=== PATIENT | male | born 1965 | race Caucasian/White ===

== ENCOUNTER → 2021-10-31 10:40 | Outpatient (CLI) | payer OTHER, SELFPAY ==
--- NOTE | ~2021-10-31 | MR_ITS ---
EXAMINATION: MR shoulder LT wo con DATE: 10/31/2021 11:31 INDICATION: Left shoulder pain TECHNIQUE: Magnetic resonance imaging (MRI) of the left shoulder was performed without intravenous co ntrast. Sequences included axial PD-weighted FS FSE, coronal oblique PD-weighted FS FSE, coronal obli que T2-weighted FS FSE, sagittal PD-weighted FS FSE, and sagittal T1-weighted SE. COMPARISON: None. FINDINGS: Coracoacromial arch: The acromion undersurface is curved in morphology (type II). Small anterior subacromial spur at the f emoral attachment of the normal coracoacromial ligament. Moderate acromioclavicular osteoarthritis wi th small inferiorly directed osteophyte at the lateral head of the clavicle. Rotator cuff: Mild supraspinatus and moderate to severe infraspinatus tendinopathy. There is complete full-thicknes s tear along the greater tuberosity footplate of the supraspinatus tendon and portion of the conjoine d supraspinatus and infraspinatus tendons which measures 2 cm AP along the greater tuberosity and wit h approximate 4 cm medial retraction of the retracted supraspinatus tendon tear margin which is locat ed between the level of the acromioclavicular joint and the rim of the glenoid. The tear continues po steriorly as articular sided tear of the anterior two thirds of the infraspinatus tendon where it inv olves between one half and two thirds of the tendon thickness. The posterior most infraspinatus tendo n remains intact. The teres minor tendon is normal. Moderate subscapularis tendinopathy with tiny int rasubstance tear at the central aspect of the lesser tuberosity footplate. There is moderate fatty at rophy of the infraspinatus muscle belly and mild atrophy of the supraspinatus muscle belly. Biceps tendon, glenoid labrum and glenohumeral cartilage: Moderate tendinopathy of the intra-articular long head biceps tendon without definitive tear. Mild pa rtial-thickness cartilage loss with smooth chondral surface at the cephalad half of the glenoid. Ther e is degeneration of the posterosuperior and diminutive posterior glenoid labrum with small marginal osteophytes replacing portions of the posterior labrum. There is more severe cartilage loss along the posterior inferior rim of the glenoid. There is a tear at the inferior glenoid labrum which appears contiguous with and intrasubstance delaminating tear of the articular cartilage along the inferior th ird of the glenoid extending up to 8 mm cephalad to the inferior rim of the glenoid. Mild partial-thi ckness cartilage loss along the inferomedial and superolateral aspect of the humeral head without deg enerative subchondral changes. Fluid: Small glenohumeral joint effusion which extends to the full-thickness rotator cuff tear to communicat e with small amount of fluid in the subacromial/subdeltoid and subcoracoid bursae. No loose osteochon dral bodies. Bones: Normal marrow signal with no edema, fracture or pathologic marrow replacing process. IMPRESSION: 1. Complete full-thickness tear and significant medial retraction of the supraspinatus tendon and mod erate to severe partial thickness articular sided tear of the majority the more posterior infraspinat us tendon. 2. Mild glenohumeral osteoarthritis with extensive labral degeneration and discrete labral tear and a ssociated prominent chondral flap tear at the inferior glenoid. 3. Moderate subscapularis tendinopathy with tiny intrasubstance tear at the lesser tuberosity footpla te. Reviewed, dictated and finalized at location A. IMPRESSION: 1. Complete full-thickness tear and significant medial retraction of the supras pinatus tendon and moderate to severe partial thickness articular sided tear of the majority the more posterior infraspinatus tendon. 2.
== END ==
PROVIDERS: PCP Physician Assistant Medical; Visit Provider Physician Assistant Medical
DX: M19.012 Primary osteoarthritis, left shoulder (principal)
CPT/HCPCS: 73221

== ENCOUNTER 2022-11-03 01:13 | Day surgery (SDC) | payer OTHER, SELFPAY ==
[2022-10-20 14:41] VITALS: BMI 40.4
--- NOTE | 2022-10-31 14:48 | PM.HPGS ---
History of Present Illness History of Present Illness Consent: Risks, benefits, and alternatives have been discussed and questions answered. Patient agrees to proceed with procedure. Chief complaint: other fecal abnormalities Narrative: Dre Salazar is a 57 year old male Referred for colon cancer screening. A Cologuard test was positive. Review of Systems Review of Systems: All systems reviewed & are unremarkable except as noted in HPI and below PMFSH Past Medical History Medical History Anxiety BPH (benign prostatic hyperplasia) HTN (hypertension) Surgical History Surgical History History of open reduction and internal fixation (ORIF) procedure History of repair of left rotator cuff Social History Social History Smoking status: Never smoker Alcohol intake: current Alcohol use details: Socially Substance use: never Substance use type: does not use Lack of Transportation: No Lack of Food: Never True Current Housing: I Have Housing Concerned About Future Housing: No Difficulty Paying Gas/Electric Bills: No Difficulty Paying for Meds: No Currently Unemployed: No Education: Don't Know Difficulty w/ Childcare or Family Care: No Living arrangements: with family Occupation/Education: retired Gender identity (if verbalized by the patient): Male Sexual Orientation (if Verbalized by the Patient): Straight or Heterosexual Meds Home Medications and Allergies Home Medications Medication Instructions Recorded Confirmed Type citalopram 10 mg tablet 10 mg PO DAILY #90 tabs 08/27/22 10/20/22 Rx clonazepam 0.5 mg tablet 0.5 mg PO BID #60 tabs 08/27/22 10/20/22 Rx finasteride 5 mg tablet 5 mg PO DAILY #90 tabs 08/27/22 10/20/22 Rx hydrochlorothiazide 25 mg tablet 25 mg PO DAILY #90 tabs 08/27/22 10/20/22 Rx losartan 50 mg tablet 50 mg PO DAILY #90 tabs 08/27/22 10/20/22 Rx tamsulosin 0.4 mg capsule (Flomax) 0.4 mg PO DAILY #90 caps 08/27/22 10/20/22 Rx esomeprazole magnesium 20 mg 20 mg PO DAILY 10/20/22 10/20/22 History capsule,delayed release (Nexium) Allergies Allergy/AdvReac Type Severity Reaction Status Date / Time No Known Allergies Allergy Verified 11/03/22 11:14 Exam Const: General: obese Resp: Auscultation: clear to auscultation bilaterally Cardio: Rate: regular rate Rhythm: regular rhythm GI: Inspection: obesity GI Palp: Yes Soft to palpation and No Tenderness to palpation present (GI) Assessment and Plan Assessment and plan (1) Colon cancer screening: Code(s): Z12.11 - Encounter for screening for malignant neoplasm of colon Status: Acute Assessment and Plan: Colonoscopy with possible biopsy or polypectomy or cautery or injection of substances.
[2022-11-03 11:15] VITALS: BP 141/103; PULSE 71; RESP 20; TEMP 36.2; O2SAT 94
[2022-11-03] MEDS: LACTATED RINGERS 1,000 ML 150 ML IV CONT (11:27)
--- NOTE | 2022-11-03 11:58 | WPDANESEPPF ---
Anes - Initial Pre Proc Eval Procedure: Operation Date: 11/03/22 12:30 Proposed Procedures p Colonoscopy - Tc Bloom MD Date/Time: 11/03/22 11:58 Surgeon: Tc Bloom MD Pre Op Diagnosis: other fecal abnormalities Patient Data Age: 57 Gender: M Height: 1.96 m Weight: 168.3 kg Last Vital Signs Temp 36.2 C L 11/03/22 11:15 Pulse 71 11/03/22 11:15 Resp 20 11/03/22 11:15 BP 141/103 H 11/03/22 11:15 Pulse Ox 94 11/03/22 11:15 O2 Del Method Room Air 11/03/22 11:15 Allergies Allergy/AdvReac Type Severity Reaction Status Date / Time No Known Allergies Allergy Verified 11/03/22 11:14 Home Medications Medication Instructions Recorded Confirmed Type citalopram 10 mg tablet 10 mg PO DAILY #90 tabs 08/27/22 11/03/22 Rx clonazepam 0.5 mg tablet 0.5 mg PO BID #60 tabs 08/27/22 11/03/22 Rx finasteride 5 mg tablet 5 mg PO DAILY #90 tabs 08/27/22 11/03/22 Rx hydrochlorothiazide 25 mg tablet 25 mg PO DAILY #90 tabs 08/27/22 11/03/22 Rx losartan 50 mg tablet 50 mg PO DAILY #90 tabs 08/27/22 11/03/22 Rx tamsulosin 0.4 mg capsule (Flomax) 0.4 mg PO DAILY #90 caps 08/27/22 11/03/22 Rx esomeprazole magnesium 20 mg 20 mg PO DAILY 10/20/22 11/03/22 History capsule,delayed release (Nexium) Patient hx anesthesia problems: none Family hx anesthesia problems: none Results Review: All pre-operative results and documents have been reviewed as part of the pre-operative evaluation. [facility] Past Medical History Medical History (Updated 11/03/22 @ 11:59 by Ruben Welch MD) Anxiety BPH (benign prostatic hyperplasia) HTN (hypertension) Morbid obesity with BMI of 40.0-44.9, adult Obesity Surgical History Surgical History History of open reduction and internal fixation (ORIF) procedure History of repair of left rotator cuff Social History Social History Smoking status: Never smoker Alcohol intake: current Alcohol use details: Socially Substance use: never Substance use type: does not use Lack of Transportation: No Lack of Food: Never True Current Housing: I Have Housing Concerned About Future Housing: No Difficulty Paying Gas/Electric Bills: No Difficulty Paying for Meds: No Currently Unemployed: No Education: Don't Know Difficulty w/ Childcare or Family Care: No Living arrangements: with family Occupation/Education: retired Gender identity (if verbalized by the patient): Male Sexual Orientation (if Verbalized by the Patient): Straight or Heterosexual Anes - Eval Final PreProcedure Day of Procedure 11/03/22 11:58 Patient weight: morbidly obese Heart: regular rate and rhythm Lungs: clear to auscultation and normal air movement Airway: Mallampati scale class II Neurological: alert and oriented Last oral intake: >/= 8 hours ASA classification: III Emergent: no Anesthetic plan: proceed Anesthesia type and monitoring: general GIVS Results Review: All pre-operative results and documents have been reviewed as part of the pre-operative evaluation. Informed Consent: The patient's anesthetic plan and its attendant risks and benefits were discussed with the patient/family/POA. Questions were solicited and answers provided to the satisfaction of the patient/family/POA.
[2022-11-03 12:28] VITALS: BP 141/88; PULSE 71; RESP 21; O2SAT 94
[2022-11-03 12:38] VITALS: BP 141/95; PULSE 61; RESP 16; O2SAT 94
[2022-11-03 12:48] VITALS: BP 144/95; PULSE 62; RESP 18; O2SAT 94
== END 2022-11-03 12:55 | disposition home or self-care (01) ==
PROVIDERS: PCP Physician Assistant Medical; Visit Provider Internal Medicine Gastroenterology
PROC: 0DJD8ZZ Inspection of Lower Intestinal Tract, Via Natural or Artificial Opening Endoscopic (ICD-10-PCS; CPT 45378; principal; 2022-11-03 12:30)
DX: Z12.11 Encounter for screening for malignant neoplasm of colon (principal); K57.30 Diverticulosis of large intestine without perforation or abscess without bleeding; D12.4 Benign neoplasm of descending colon; R19.5 Other fecal abnormalities; N40.0 Benign prostatic hyperplasia without lower urinary tract symptoms; I10 Essential (primary) hypertension; F41.9 Anxiety disorder, unspecified; E66.01 Morbid (severe) obesity due to excess calories; Z68.41 Body mass index [BMI] 40.0-44.9, adult
CPT/HCPCS: 45381; 45385; 88305; J2704; J7120

== ENCOUNTER 2023-07-28 09:53 | Emergency (ER) | payer OTHER, SELFPAY ==
[2023-07-28] VITALS (33 sets, daily range): BP systolic 136–181; BP diastolic 84–125; PULSE 58–93; RESP 11–22; TEMP 36.2; O2SAT 95–97
--- NOTE | ~2023-07-28 | CT_ITS ---
EXAMINATION: CT facial bones w con DATE: 07/28/2023 11:32 INDICATION: Sinusitis and periorbital cellulitis. TECHNIQUE: Computed tomography (CT) of the facial bones and maxillofacial region was performed with 1 00 mL Omnipaque-350 intravenous contrast. Coronal reconstructions were obtained. Automated exposure c ontrol and iterative reconstruction technique were employed. The dose-length product was 712.09 mGy-c m. COMPARISON: None. FINDINGS: Dental disease with absent right first molar and multiple dental restorations. Dental caries at the a butting margins of the left maxillary second premolar and first molar. There is a sagittally oriented fracture extending from the central aspect of the crown to between the roots of the left maxillary f irst premolar. There is minimal amount of periapical lucency at the lateral root with erosion through the lateral cortex. Along the lateral maxilla is an overlying subperiosteal abscess measuring up to 5 mm in thickness, 1.9 cm AP and 1.3 cm craniocaudally. There is more extensive likely secondary soft tissue swelling with subcutaneous edema at the left side of the face extending from left upper neck to the left periorbital region with prominent preseptal soft tissue swelling. The orbits are otherwis e normal with no post septal stranding. There is moderate mucosal thickening throughout the left maxi llary sinus with occlusion of the ostiomeatal unit. There are some mild mucosal thickening the left e thmoid sinus. Mastoid air cells and middle ear cavities are clear. No pathologically enlarged facial or moderate cervical spondylosis. Tiny sialolith in the left parotid gland. Cervical lymphadenopathy. IMPRESSION: 1. Fractures left first premolar with associated abnormal periapical lucency and erosion through the lateral cortex and overlying subperiosteal abscess. 2. Soft tissue swelling subcutaneous edema at the left side of the face including the left periorbita l region most likely reactive edema although cannot exclude more extensive cellulitis. No post septal stranding at the left orbit. 3. Moderate mucosal thickening in the left maxillary sinus. Reviewed, dictated and finalized at location A. [employer] IMPRESSION: 1. Fractures left first premolar with associated abnormal periapical lucency an d erosion through the lateral cortex and overlying subperiosteal abscess. 2. Soft tissue swelling subcutaneous edema at the left side of the face includi ng the left periorbital region most likely reactive edema although cannot exclu de more extensive cellulitis. No post septal stranding at the left orbit. 3. Moderate mucosal thickening in the left maxillary sinus.
--- NOTE | 2023-07-28 11:04 | ED.DENTAL ---
HPI - Dental/Oral General Chief complaint: Dental/Oral <Jose Urban APRN - Last Filed: 07/28/23 19:01> Stated complaint: dental <Jose Urban APRN - Last Filed: 07/28/23 19:01> Time Seen by Provider: 07/28/23 10:50 <Jose Urban APRN - Last Filed: 07/28/23 19:01> Source: patient <Jose Urban APRN - Last Filed: 07/28/23 19:01> Mode of arrival: ambulatory <Jose Urban APRN - Last Filed: 07/28/23 19:01> Limitations: no limitations <Jose Urban APRN - Last Filed: 07/28/23 19:01> History of Present Illness HPI Narrative: Dre is a 58-year-old male patient presenting to the ER today with complaints of dental pain/left-sided facial swelling x1 day. Patient reports that his dental pain started 1-2 days ago and he noticed some mild swelling to his left cheek yesterday. Reports when he woke up this morning his a is swelling worsened and his eye is almost swollen shut. Denies any fever or chills. Will schedule to see his dentist this afternoon however they recommend he come to the ER for evaluation due to his extensive swelling. <Jose Urban APRN - Last Filed: 07/28/23 19:01> Related Data Home medications: Home Medications Medication Instructions Recorded Confirmed esomeprazole magnesium 20 mg 20 mg PO DAILY 10/20/22 04/27/23 capsule,delayed release (Nexium) <Jose Urban APRN - Last Filed: 07/28/23 19:01> Allergies/adverse reactions: Allergies Allergy/AdvReac Type Severity Reaction Status Date / Time ampicillin Allergy Hives Verified 07/28/23 13:57 sesame seed Allergy Hives Verified 07/28/23 13:52 <Jose Urban APRN - Last Filed: 07/28/23 19:01> Review of Systems Review of Systems: Pertinent positives per HPI. Patient denies any fever, chills, rash, headache, visual changes, dizziness, cough, runny nose, sore throat, shortness of breath, chest pain, palpitations, nausea, vomiting, diarrhea, constipation, abdominal pain, or any urinary issues. <Jose Urban APRN - Last Filed: 07/28/23 19:> [facility] Past Medical History Medical History: Medical History Anxiety BPH (benign prostatic hyperplasia) Dyslipidemia GERD (gastroesophageal reflux disease) HTN (hypertension) Hyperglycemia Morbid obesity with BMI of 40.0-44.9, adult Obesity <Jose Urban APRN - Last Filed: 07/28/23 19:> Surgical History Surgical History: Surgical History History of open reduction and internal fixation (ORIF) procedure History of repair of left rotator cuff <Jose Urban APRN - Last Filed: 07/28/23 19:> Social History Social History: Social History Smoking status: Never smoker Alcohol intake: current Alcohol use details: Socially Substance use: never Substance use type: does not use Lack of Transportation: No Lack of Food: Never True Current Housing: I Have Housing Concerned About Future Housing: No Difficulty Paying Gas/Electric Bills: No Difficulty Paying for Meds: No Currently Unemployed: No Education: Don't Know Difficulty w/ Childcare or Family Care: No Living arrangements: with family Occupation/Education: retired Gender identity (if verbalized by the patient): Male Sexual Orientation (if Verbalized by the Patient): Straight or Heterosexual <Jose Urban APRN - Last Filed: 07/28/23 19:01> Comments At the time of my signature, I reviewed and agree with the nursing past medical, surgical, social, and family history. There is no relevant family history pertinent to the patient complaint. <Jose Urban APRN - Last Filed: 07/28/23 19:01> Exam Narrative: General: Well-developed, well nourished, in no apparent distress Head: Normoce
[2023-07-28 11:28] LABS: Estimated CRCL calculation 131 ml/min; Estimated Glomerular Filt Rate > 60
[2023-07-28 11:30] LABS: Basophils Percent Auto 0.2 % (0.2-1.2); Eosinophils Absolute Auto 0.1 K/mm3 (0-0.3); Eosinophils Percent Auto 1.1 % (0-4.4); Hematocrit 50.3 % (42.0-52.0); Hemoglobin 16.1 g/dL (14.0-18.0); Immature Granulocyte Absolute 0.02 K/mm3 (0.00-0.031); Immature Granulocyte Percent A 0.2 % (0-0.5); Lymphocytes Absolute Auto 1.08 K/mm3 (0.9-3.2); Lymphocytes Percent Auto 11.8 % (18.3-44.2); Mean Corpuscular Hemoglobin 28.8 pg (26-34); Mean Platelet Volume 10.8 fl (7.4-10.4); Monocytes Absolute Auto 0.9 K/mm3 (0.1-0.6); Monocytes Percent Auto 10.1 % (2.6-8.5); Neutrophils Percent Auto 76.6 % (45.5-73.1); Platelet Count Result 163 k/mm3 (150-375); Red Blood Count 5.59 M/mm3 (4.6-6.20); Red Cell Distribution Width 13.8 % (11.5-14.5); White Blood Count 9.2 K/mm3 (4.5-10.0)
[2023-07-28 11:44] LABS: Alanine Aminotransferase 25 U/L (6-50); Albumin Level 4.2 g/dL (3.5-5.1); Alkaline Phosphatase 106 U/L (38-126); Anion Gap 8 mmol/L (8-16); Aspartate Amino Transferase 32 U/L (17-59); Bilirubin,Total 1.1 mg/dL (0.2-1.3); Blood Urea Nitrogen 12 mg/dL (9-20); Calcium 9.1 mg/dL (8.4-10.2); Carbon Dioxide 29 mmol/L (22-30); Chloride 104 mmol/L (98-107); Estimated CRCL calculation 146 ml/min; Estimated Glomerular Filt Rate > 60; Glucose 129 mg/dL (65-110); Potassium 3.9 mmol/L (3.4-5.0); Sodium 141 mmol/L (137-145)
[2023-07-28] MEDS: MORPHINE SULFATE (*CRX) 2 MG/ML INJ IV PUSH (13:35)
[2023-07-28] MEDS: AMPICILLIN SULB 3 GM/NS 100 ML 3 GM/100 ML VIAL IVPB (13:35)
[2023-07-28] MEDS: diphenhydrAMINE HCl INJ 50 MG/ML VIAL IV PUSH (13:54)
--- NOTE | 2023-07-28 13:56 | PC.NURSE ---
during ampicillin infusion pt began feeling itchy and started getting mild hives near IV site. MD notified and iv benadryl administered. allergy recorded in chart. pt denies any sob or throat swelling.
[2023-07-28] MEDS: LIDO 1%/EPINEPHRINE 1:100,000 20 ML VIAL (18:44)
--- NOTE | 2023-07-28 18:53 | WPDPROCEDUR ---
Procedures Other Procedures Procedure 1: Other Procedure: Incision and drainage left oral abscess. All the consents obtained. 1 cc 1% lidocaine with 1 100,000 parts injected in the most fluctuant portion 11 blade utilized to open the abscess about 1 cc of turbid purulence drained. No further purulence drained does not build culture anything. Patient tolerated the procedure well.
--- NOTE | 2023-07-28 18:53 | WPDCN ---
Assessment and Plan Assessment and plan (1) Oral abscess: Code(s): K12.2 - Cellulitis and abscess of mouth Status: Acute Assessment and Plan: abscess open not enough to culture patient tolerated the procedure well he needs prompt follow-up with dentist. These teeth are infected and causing issues clearly. Patient tolerated the incision and drainage well. Recommend 10 days of clindamycin higher dose q.i.d. 300 mg oral b.i.d. Augmentin [id number]. Patient in ER voiced understanding and agreed. HPI Data of Consult Date/Time: 07/28/23 18:53 Primary Care Provider: Petra Staton PA-C Consult Narrative Narrative: Dre Salazar is a 58 year old male With left-sided odontogenic pathology abscess there was good sinus infection as well as some soft tissue swelling in the gingiva PMFSH Past Medical History Medical History Anxiety BPH (benign prostatic hyperplasia) Dyslipidemia GERD (gastroesophageal reflux disease) HTN (hypertension) Hyperglycemia Morbid obesity with BMI of 40.0-44.9, adult Obesity Surgical History Surgical History History of open reduction and internal fixation (ORIF) procedure History of repair of left rotator cuff Social History Social History Smoking status: Never smoker Alcohol intake: current Alcohol use details: Socially Substance use: never Substance use type: does not use Lack of Transportation: No Lack of Food: Never True Current Housing: I Have Housing Concerned About Future Housing: No Difficulty Paying Gas/Electric Bills: No Difficulty Paying for Meds: No Currently Unemployed: No Education: Don't Know Difficulty w/ Childcare or Family Care: No Living arrangements: with family Occupation/Education: retired Gender identity (if verbalized by the patient): Male Sexual Orientation (if Verbalized by the Patient): Straight or Heterosexual Meds Home Medications and Allergies Home Medications Medication Instructions Recorded Confirmed Type esomeprazole magnesium 20 mg 20 mg PO DAILY 10/20/22 04/27/23 History capsule,delayed release (Nexium) losartan 50 mg tablet 50 mg PO DAILY #90 tabs 02/13/23 04/27/23 Rx citalopram 10 mg tablet 10 mg PO DAILY #90 tabs 02/20/23 04/27/23 Rx finasteride 5 mg tablet 5 mg PO DAILY #90 tabs 03/23/23 04/27/23 Rx clonazepam 0.5 mg tablet 0.5 mg PO BID #60 tabs 03/27/23 04/27/23 Rx atorvastatin 10 mg tablet 10 mg PO QHS #90 tabs 05/01/23 Rx hydrochlorothiazide 25 mg tablet 25 mg PO DAILY #90 tabs 05/18/23 Rx tamsulosin 0.4 mg capsule See Rx Instructions .Route 07/06/23 Rx .COMPLEX #90 caps amoxicillin 875 mg-potassium 1 tablet PO BID #20 tabs 07/09/23 Rx clavulanate 125 mg tablet clindamycin HCl 300 mg capsule 300 mg PO Q6H 10 days #40 caps 07/29/23 Rx Allergies Allergy/AdvReac Type Severity Reaction Status Date / Time ampicillin Allergy Hives Verified 07/28/23 13:57 sesame seed Allergy Hives Verified 07/28/23 13:52 Vital Signs Vital Signs - 24 hr 07/28/23 10:24 07/28/23 13:34 07/28/23 14:58 Temperature 36.2 C L Pulse Rate 78 72 69 Respiratory Rate 20 14 13 Blood Pressure 151/125 H 136/87 Pulse Oximetry 96 95 97 Oxygen Delivery Room Air 07/28/23 15:00 07/28/23 13:40 07/28/23 14:40 Temperature Pulse Rate 78 70 Respiratory Rate 15 13 Blood Pressure 150/88 H Pulse Oximetry Oxygen Delivery 07/28/23 14:45 07/28/23 14:46 07/28/23 14:58 Temperature Pulse Rate 76 67 71 Respiratory Rate 12 16 15 Blood Pressure Pulse Oximetry Oxygen Delivery 07/28/23 15:00 07/28/23 15:01 07/28/23 15:15 Temperature Pulse Rate 70 75 73 Respiratory Rate 15 14 16 Blood Pressure 150/88 H Pulse Oximetry Oxygen Delivery 07/28/23 15:16 07/28/23 15:30
[2023-07-28] MEDS: CLINDAMYCIN 600 MG/D5W 50 ML 600 MG/50 ML PIGGYBACK 100 MG IVPB (19:01)
== END 2023-07-28 19:37 | disposition home or self-care (01) ==
PROVIDERS: Emergency Provider Nurse Practitioner Family; PCP Physician Assistant Medical
DX: K04.7 Periapical abscess without sinus (principal); F41.9 Anxiety disorder, unspecified; K21.9 Gastro-esophageal reflux disease without esophagitis; I10 Essential (primary) hypertension
CPT/HCPCS: 36415; 70487; 80053; 85025; 96365; 96367; 96375; 99284; J0295; J0696; J1200; J2270; Q9967

== ENCOUNTER 2024-06-02 01:38 | Day surgery (SDC) | payer OTHER, SELFPAY ==
[2024-05-26 09:48] VITALS: BMI 41.8
[2024-06-02 06:42] VITALS: BP 137/101; PULSE 88; RESP 20; TEMP 36.3; O2SAT 97; BMI 44.0
[2024-06-02] MEDS: LACTATED RINGERS 1,000 ML 150 ML IV CONT (06:45)
--- NOTE | 2024-06-02 07:06 | WPDANESEPPF ---
Anes - Initial Pre Proc Eval Procedure: Operation Date: 06/02/24 08:00 Proposed Procedures p Screening Colonoscopy - Angel Romero MD Date/Time: 06/02/24 07:06 Surgeon: Angel Romero MD Pre Op Diagnosis: hx colon polyps Patient Data Age: 59 Gender: M Height: 1.96 m Weight: 168.5 kg Last Vital Signs Temp 36.3 C L 06/02/24 06:42 Pulse 88 06/02/24 06:42 Resp 20 06/02/24 06:42 BP 137/101 H 06/02/24 06:42 Pulse Ox 97 06/02/24 06:42 O2 Del Method Room Air 06/02/24 06:42 Allergies Allergy/AdvReac Type Severity Reaction Status Date / Time ampicillin Allergy Hives Verified 06/02/24 06:38 sesame seed Allergy Hives Verified 06/02/24 06:38 Home Medications Medication Instructions Recorded Confirmed Type esomeprazole magnesium 20 mg 20 mg PO DAILY 10/20/22 05/26/24 History capsule,delayed release (Nexium) hydrochlorothiazide 25 mg tablet 25 mg PO DAILY #90 tabs 11/02/23 06/02/24 Rx citalopram 10 mg tablet 10 mg PO DAILY #90 tabs 12/22/23 05/26/24 Rx clonazepam 0.5 mg tablet 0.5 mg PO BID #180 tabs 12/22/23 05/26/24 Rx finasteride 5 mg tablet 5 mg PO DAILY #90 tabs 04/12/24 05/26/24 Rx losartan 50 mg tablet 50 mg PO DAILY #90 tabs 04/12/24 06/02/24 Rx tamsulosin 0.4 mg capsule 0.4 mg PO DAILY #90 caps 04/12/24 05/26/24 Rx cholecalciferol (vitamin D3) 50 50 mcg PO DAILY 05/26/24 05/26/24 History mcg (2,000 unit) tablet (Vitamin D3) mecobalamin (vitamin B12) 1,000 1,000 mcg PO DAILY 05/26/24 05/26/24 History mcg chewable tablet atorvastatin 10 mg tablet 10 mg PO QHS #90 tabs 05/30/24 06/02/24 Rx Patient hx anesthesia problems: none Family hx anesthesia problems: none Results Review: All pre-operative results and documents have been reviewed as part of the pre-operative evaluation. [facility] Past Medical History Medical History Anxiety BPH (benign prostatic hyperplasia) Dyslipidemia GERD (gastroesophageal reflux disease) HTN (hypertension) Hyperglycemia Morbid obesity with BMI of 40.0-44.9, adult Obesity Surgical History Surgical History History of open reduction and internal fixation (ORIF) procedure History of repair of left rotator cuff Social History Social History Smoking status: Never smoker Alcohol intake: current Drinks per week: 5 Alcohol use details: Socially Substance use: never Substance use type: does not use Lack of Transportation: No Lack of Food: Never True Current Housing: I Have Housing Concerned About Future Housing: No Difficulty Paying Gas/Electric Bills: No Difficulty Paying for Meds: No Currently Unemployed: No Education: Don't Know Difficulty w/ Childcare or Family Care: No Living arrangements: with family Occupation/Education: retired Gender identity (if verbalized by the patient): Male Sexual Orientation (if Verbalized by the Patient): Straight or Heterosexual Spiritual care concerns: No Anes - Eval Final PreProcedure Day of Procedure 06/02/24 07:06 Patient weight: morbidly obese Heart: regular rate and rhythm Lungs: clear to auscultation Airway: Mallampati scale class 1 Neurological: alert and oriented Last oral intake: >/= 8 hours ASA classification: III Emergent: no Anesthetic plan: proceed Anesthesia type and monitoring: general GIVS and standard monitoring Results Review: All pre-operative results and documents have been reviewed as part of the pre-operative evaluation. Informed Consent: The patient's anesthetic plan and its attendant risks and benefits were discussed with the patient/family/POA. Questions were solicited and answers provided to the satisfaction of the patient/family/POA.
--- NOTE | 2024-06-02 07:32 | PM.IMHP ---
H&P: HPI History of Present Illness Date/Time: 06/02/24 07:32 Chief Complaint: History of colon polyps Narrative: the patient had a large tubular adenoma removed from his descending colon last year. He is here for his surveillance colonoscopy. Review of Systems Review of Systems: All systems reviewed & are unremarkable except as noted in HPI and below PMFSH Past Medical History Medical History Anxiety BPH (benign prostatic hyperplasia) Dyslipidemia GERD (gastroesophageal reflux disease) HTN (hypertension) Hyperglycemia Morbid obesity with BMI of 40.0-44.9, adult Obesity Surgical History Surgical History History of open reduction and internal fixation (ORIF) procedure History of repair of left rotator cuff Social History Social History Smoking status: Never smoker Alcohol intake: current Drinks per week: 5 Alcohol use details: Socially Substance use: never Substance use type: does not use Lack of Transportation: No Lack of Food: Never True Current Housing: I Have Housing Concerned About Future Housing: No Difficulty Paying Gas/Electric Bills: No Difficulty Paying for Meds: No Currently Unemployed: No Education: Don't Know Difficulty w/ Childcare or Family Care: No Living arrangements: with family Occupation/Education: retired Gender identity (if verbalized by the patient): Male Sexual Orientation (if Verbalized by the Patient): Straight or Heterosexual Spiritual care concerns: No Meds Home Medications and Allergies Home Medications Medication Instructions Recorded Confirmed Type esomeprazole magnesium 20 mg 20 mg PO DAILY 10/20/22 05/26/24 History capsule,delayed release (Nexium) hydrochlorothiazide 25 mg tablet 25 mg PO DAILY #90 tabs 11/02/23 06/02/24 Rx citalopram 10 mg tablet 10 mg PO DAILY #90 tabs 12/22/23 05/26/24 Rx clonazepam 0.5 mg tablet 0.5 mg PO BID #180 tabs 12/22/23 05/26/24 Rx finasteride 5 mg tablet 5 mg PO DAILY #90 tabs 04/12/24 05/26/24 Rx losartan 50 mg tablet 50 mg PO DAILY #90 tabs 04/12/24 06/02/24 Rx tamsulosin 0.4 mg capsule 0.4 mg PO DAILY #90 caps 04/12/24 05/26/24 Rx cholecalciferol (vitamin D3) 50 50 mcg PO DAILY 05/26/24 05/26/24 History mcg (2,000 unit) tablet (Vitamin D3) mecobalamin (vitamin B12) 1,000 1,000 mcg PO DAILY 05/26/24 05/26/24 History mcg chewable tablet atorvastatin 10 mg tablet 10 mg PO QHS #90 tabs 05/30/24 06/02/24 Rx Allergies Allergy/AdvReac Type Severity Reaction Status Date / Time ampicillin Allergy Hives Verified 06/02/24 06:38 sesame seed Allergy Hives Verified 06/02/24 06:38 Vital Signs Vital Signs - 24 hr 06/02/24 06:42 Temperature 97.4 F L Pulse Rate 88 Respiratory Rate 20 Blood Pressure 137/101 H Pulse Oximetry 97 Oxygen Delivery Room Air Assessment and Plan Assessment and plan (1) History of colonic polyps: Code(s): Z86.0100 - Personal history of colon polyps, unspecified Status: Acute Assessment and Plan: The patient is deemed a good candidate for the procedure. Consent signed. Will proceed.
[2024-06-02 08:06] VITALS: BP 143/78; PULSE 80; RESP 19; O2SAT 94
[2024-06-02 08:16] VITALS: BP 161/96; PULSE 70; RESP 21; O2SAT 96
[2024-06-02 08:26] VITALS: BP 148/90; PULSE 68; RESP 26; O2SAT 96
== END 2024-06-02 08:40 | disposition home or self-care (01) ==
PROVIDERS: PCP Physician Assistant Medical; Visit Provider Internal Medicine Gastroenterology
PROC: 0DJD8ZZ Inspection of Lower Intestinal Tract, Via Natural or Artificial Opening Endoscopic (ICD-10-PCS; CPT 45378; principal; 2024-06-02 08:00)
DX: Z09 Encounter for follow-up examination after completed treatment for conditions other than malignant neoplasm (principal); D12.2 Benign neoplasm of ascending colon; D12.3 Benign neoplasm of transverse colon; K57.30 Diverticulosis of large intestine without perforation or abscess without bleeding; E78.5 Hyperlipidemia, unspecified; K21.9 Gastro-esophageal reflux disease without esophagitis; I10 Essential (primary) hypertension; N40.0 Benign prostatic hyperplasia without lower urinary tract symptoms; R73.9 Hyperglycemia, unspecified; F41.9 Anxiety disorder, unspecified; E66.01 Morbid (severe) obesity due to excess calories; Z68.41 Body mass index [BMI] 40.0-44.9, adult; Z98.890 Other specified postprocedural states
CPT/HCPCS: 45385; 88305; J2003; J2704; J7120